=== PATIENT | male | born 1965 | race Caucasian/White ===

== ENCOUNTER → 2020-12-19 11:19 | Outpatient (BNVA) | payer BC, SELFPAY | PROVIDERS: Referring Provider Nurse Practitioner Family; Visit Provider Orthopaedic Surgery | DX: M54.5 Low back pain (principal); M51.36 Other intervertebral disc degeneration, lumbar region; M43.16 Spondylolisthesis, lumbar region | CPT/HCPCS: 72110 ==

== ENCOUNTER → 2021-05-22 10:06 | Outpatient (BNVA) | payer OTHER, SELFPAY | PROVIDERS: Visit Provider Orthopaedic Surgery | DX: Z01.818 Encounter for other preprocedural examination (principal) | CPT/HCPCS: 87635 ==

== ENCOUNTER 2021-05-28 15:26 | Observation (INO) | payer OTHER, SELFPAY ==
[2021-05-25 12:44] VITALS: BMI 28.0
[2021-05-28] VITALS (18 sets, daily range): BP systolic 107–151; BP diastolic 62–90; PULSE 72–91; RESP 16–18; TEMP 36.2–36.8; O2SAT 95–100
--- NOTE | 2021-05-28 | SCC_ITS ---
Procedure done: 1.? L4/5 Interbody fusion with posterolateral fusion 2.? Instrumentation L4/5 3. Cage at L4/5 4. Laminectomy L4 5. use of autograft from same incision 6. allograft 7. Bone marrow aspirate from right iliac crest 8.? Use of computer navigation/ stereotactic for spine 4 seconds of fluoroscopic guidance, for a cumulative dose of 28.1 mGy, was provided to Dr. Hernandez by the radiology department. C-arm images of the lumbar spine were saved for the patient's permanent record. CLARISA
--- NOTE | 2021-05-28 | XR_ITS ---
WS: [id number] INTRAOPERATIVE TECHNIQUE: 4 Spot fluoroscopic images for intraoperative purposes. FLUOROSCOPY TIME: 13 seconds CLINICAL INFORMATION: lumbar sponylothesis l4/l5 COMPARISON: None. FINDINGS: Pedicle screw fixation L4-L5 with interbody fusion graft. Hardware appears in good position. XR/XR lumbar spine 1V [id number] IMPRESSION: Images obtained for intraoperative purposes.
[2021-05-28] MEDS: sodium chloride 0.9% 1,000 ML 30 ML IV (11:35)
--- NOTE | 2021-05-28 11:45 | P.HP_ITS ---
Providers/Chief Complaint Primary Care Provider: KOURTNEY Manning Chief Complaint: lumbar spondylolthesis l4/5 History of Present Illness ROMULO CANALES is a 56 year old male He continues to have pain to his low back that travels into his posterior bilat leg pain with the right being worse. He has increased pain with straightening his legs, as well as with standing and walking. He is unable to walk more then 200ft without pain. His pain is relieved by bending foreword when ambulating. He has tried physical therapy and injection therapy with minimal relief. Oral prednisone? and tramadol which did provide short term relief. His pain is alleviated by laying on his back. He does an at home stretching program with minimal relief. He feels back pain is progressively worse. Review of Systems Narrative: General ROS: negative for weight changes, fever ENT ROS: negative for nasal congestion, drainage or bleeding, sore throat, dysp hagia or ear pain Eyes: PERRL Hematological and Lymphatic ROS: negative for swollen glands or abnormal bleeding Endocrine ROS: negative for polyuria/polydpsia or new changes in weight Respiratory ROS: negative for cough, shortness of breath, or wheezing Cardiovascular ROS: negative for chest pain or dyspnea on exertion Gastrointestinal ROS: negative for reflux, abdominal pain, change in bowel habi ts, or black or bloody stools Musculoskeletal ROS: negative for back pain, neck pain, or joint pain or swelling except for current problem Neurological ROS: negative for TIA or stoke symptoms Skin: no rashes Medications/Allergies Home Medications Medication Instructions Recorded Confirmed Last Taken Type ibuprofen 200 mg tablet 400 mg PO Q6H PRN 05/25/21 05/28/21 05/28/21 10:00 History Allergies Allergy/AdvReac Type Severity Reaction Status Date / Time No Known Allergies Allergy Verified 05/28/21 11:31 Vitals/I&O/Wt Last Vital Signs Temp 97.9 F 05/28/21 11:35 Pulse 78 05/28/21 11:35 Resp 18 05/28/21 11:35 BP 146/90 05/28/21 11:35 Pulse Ox 97 05/28/21 11:35 Physical Exam Narrative: CONSTITUTIONAL: The patient is a normal appearing [] in no apparent distress. GENERAL: Patient in no acute distress. CARDIAC: Regular rate and rhythm. CHEST: Normal inspiratory effort, normal respiratory rate. ABDOMEN: Soft and nontender. SKIN: Clear, warm and intact. NEURO?PSYCH: The patient is alert and oriented to person, place and time. Sensorv /SILT Motor StrengthShoulder abduction C5 5/5Wrist extension C6 5 /5Elbow extension C7 5/5Hand Car Rental Agent C8 5/5Finger abduction T15/5 Radial/ Ulnar/ Median n intact LowerSensory (SILT)Motor StrengthHin flexion L2/3Ant/inner thigh 5/5Hip adduction L2/3 5/5Knee extension L4 Lat thigh, 5/5Toe dorsiflexion L5 5/5Ankle dorsiflexion L5/ I23Qgsuren flexion S1 5/5 DTRBleeps 2+Triceps 2+Brachioradialis 2+Patellar 2+Achilles 2+ MUSCULOSKELETAL: [] UPPEREXTREMITIES: The patient had full active ROM in fingers, wrist, elbow, and shoulder. The patient demonstrated ability to fully flex/extend/abduct/adduct fingers, make ok sign, cross 2nd/3rd digits, extend 1st digit fully.. Radial pulse 2+, CR<2 seconds. LOWER EXTREMITIES: Pt has full, active ROM of toes, ankle, knee, and hip. Dorsalis pedis/posterior tibialis pulses 2+, CR<2 seconds. SPINE: Skin warm, dry, intact. A&P Assessment and plan (1) Spondylolisthesis at L4-L5 level: L4/5 PLIF Status: Acute Attestations Medical Necessity Statement*: failed conservative tx Coding Level of Care Code Acute Director Employee Safety And Health for [facility] Diagnoses Spondylolisthesis at L4-L5 level M43.16
--- NOTE | 2021-05-28 11:50 | ANES.PREANE2 ---
Pre-Anesthetic Assessment Height/Weight: Height 1.75 m Weight 86.183 kg Temp Pulse Resp BP Pulse Ox 97.9 F 78 18 146/90 97 05/28/21 11:35 05/28/21 11:35 05/28/21 11:35 05/28/21 11:35 05/28/21 11:35 Preop Diagnosis: Spondylolisthesis L4-5 Operation Date: 05/28/21 12:40 Proposed Procedures p PLIF L4/5 64909/36524/85602/98798/M43.16(Not Applicable) - Kael Hernandez, Familial anesthetic complications: None Was Beta Lynsey taken within 24 hours: N/A Was Clonidine taken within 24 hours: N/A Last intake: Intake Last Liquid Date 05/27/21 Last Liquid Time 21:00 Last Solid Date 05/27/21 Last Solid Time 21:00 Social No alcohol and No tobacco Exam alert, oriented x 3, clear to auscultation bilaterally and regular rate & rhythm Airway Submandibular: within normal limits Cervical ROM: within normal limits Mallampati: Class I Dentition: full History/ROS No significant complaints Pulmonary None reported CV/HEM None reported None reported Hepatic None reported GI None reported Metabolic None reported Musc/skel Osteoarthritis/DJD Degenerative disease Spondylolisthesis Neuropsych None reported Anesthetic Plan ASA status: 1 Anesthesia: Anesthesia Evaluation and General Other: We discussed risk and benefits of general anesthesia including PONV, sore throat (sometimes severe), blindness, corneal abrasion, positioning and peripheral nerve injuries, life threatening allergic reaction, post operative ICU admission requiring prolonged intubation, stroke, heart attack, , and rare incidences of recall. Patient consents to proceed with general anesthesia. Risk of > 500 ml blood loss (7ml/kg in children): No Medications/Allergies Home Medications Medication Instructions Recorded Confirmed Last Taken Type ibuprofen 200 mg tablet 400 mg PO Q6H PRN 05/25/21 05/28/21 05/28/21 10:00 History Allergies Allergy/AdvReac Type Severity Reaction Status Date / Time No Known Allergies Allergy Verified 05/28/21 11:31 Current Medications Generic Name Dose Route Start Last Admin Trade Name Freq PRN Reason Stop Dose Admin Sodium Chloride 1,000 mls @ 30 mls/hr 05/28/21 11:30 05/28/21 11:35 Sodium Chloride 0.9% IV 05/29/21 11:29 30 mls/hr .Q24H JESSICA Administration Data Anesthesia Cardiac Studies: No Data to Display
--- NOTE | 2021-05-28 14:51 | P.OP_ITS ---
Operative Report Date of procedure: May 28, 2021 Pre-op diagnosis: Preop Diagnosis Spondylolisthesis L4-5 with neurogenic claudication Post-op diagnosis: same Procedure done: 1.? L4/5 Interbody fusion with posterolateral fusion 2.? Instrumentation L4/5 3. Cage at L4/5 4. Laminectomy L4 5. use of autograft from same incision 6. allograft 7. Bone marrow aspirate from right iliac crest 8.? Use of computer navigation/ stereotactic for spine Surgeon: Kael Hernandez Pediatric Neuropsychologist: Gómez Moe Pediatric Neuropsychologist: The certified surgical tech/first assistant, Gómez Moe, PAC was needed for his expertise under the microscope. He was important and necessary throughout the procedure to complete in a safe and timely manner. He assisted with patient positioning prepping and draping tissue retraction suctioning of the operative field protection of the dural sac and tissue closure Estimated blood loss: 200 Procedure: 1.? L4/5 Interbody fusion with posterolateral fusion 2.? Instrumentation L4/5 3. Cage at L4/5 4. Laminectomy L4 5. use of autograft from same incision 6. allograft 7. Bone marrow aspirate from right iliac crest 8.? Use of computer navigation/ stereotactic for spine Patient is brought to the operative suite.? After undergoing anesthesia, the patient had neuro monitoring attached.? Patient was then placed in the prone position on the Inocencio table.? All areas of impingement were well-padded.? Patient was then prepped and draped in the normal sterile fashion.? Skin incision was then made over the L4/5 disk space.? Subperiosteal dissection was made out to the transverse processes of L4 and L5.? Once the exposure was complete attention was then brought to the bone marrow aspirate. Prior to placing the pedicle screws the Iddiction bone marrow aspirate kit was used to aspirate bone marrow aspirate from the right iliac crest.? This was done by using the sharp probe to open up the bone.? Aspiration was performed and then the blunt probe was then used to dissect down to through the bone tunnel.? An aspirating well drawn back a millimeter approximately 20 cc of bone marrow aspirate was used.? Andmixed with the allograft and autograft bone that will be used. Next the fiducials were placed for the computer navigation.? 2 pins were placed in the right iliac crest.? The fiducial was attached.? The C arm was brought in and spun around the patient.? The information was linked to the computer in order to facilitate using computer navigation for the case and placing the pedicle screws. The technique for placing the pedicle screws was to use a drill followed by the gearshift probe linked to computer navigation.? Followed by the ball probe to feel the superior inferior medial lateral munoz of the pedicles using the computer navigation? Then placement of the screws.? Was done at each pedicle.? Screws were placed at L4 bilaterally and L5 bilaterally? Next attention was brought to performing the laminectomy ofL5.? This was done using the high-speed bur Kerrisons and curettes.? Once the lamina was removed and then attention was brought to performing a partial facetectomy on the contralateral side.? This was done again using the high-speed bur curettes and Kerrisons.? The ligamentum flavum was taken down bilaterally from L4 to L5.? Attention was then brought to the facet on the ipsilateral side.? The facet was taken down.? The L5 nerve was decompressed as it passed around the L5 pedicle.? The laminectomy was done for purposes of decompressing the nerve as well as placement of the cage.? The L4 nerve was identified as it traversed through the L4/5 foramen.? The thecal sac was identified and retracted.? The L4/5 disc base was identified.? Using a knife the disc base was opened.? And then sequential abdifatah were placed.? The first shaver was a 6 and the last shaver was a 10.? Using a pituitary and down going curette the endplates were scraped and disc material was removed from the space.? Once adequate decompression of the disc base was felt to be had.? Osteoamp sponge was packed into the anterior aspect of the disc base.? Then a size 10 cage from [employer] was placed after packing osteoamp into the cage.? While placing the cage the thecal sac and L5 nerve was protected.? C arm was used to ensure that the cages placed in the appropriate position. Attention was then brought to attaching the rods to the screws placed in the L4 and L5 bilaterally.? Caps were torqued into position. Locking the construct in place. Wound was copiously irrigated and then attention was brought to decorticating the facets and transverse processes laterally.? Bone that was taken down from the lamina was used along with osteoamp fibers and sponges were packed into the lateral gutters along the facet joints.? This was done bilaterally. Wound was then closed in a layered fashion starting with the thoracolumbar fascia.? 0-vicryl was used the sub cutaneous tissue was closed with 2-0 vicryl and skin with 4-0 monocryl.? Glue was then used to seal the skin and a steril dressing was applied.? Patient was then placed in the supine position. The endotracheal tube was removed and patient was transferred to the PACU in stable condition.
[2021-05-28] MEDS: HYDROmorphone 1 mg/mL INJ 1 mL 0.5 MG IVP (15:45)
--- NOTE | 2021-05-28 16:07 | ANE.PACU2 ---
Inpatient post-anesthesia follow up: Airway intact: Yes Vital signs: Temperature 97.1 F Pulse Rate 80 Respiratory Rate 18 Blood Pressure 147/82 Pulse Oximetry 97 Oxygen Delivery Me thod Room Air Oxygen Flow Rate 6 Fraction of Inspir ed Oxygen Hydration adequate: Yes Nausea and vomiting: No Pain level: 5 Mental status: Baseline
[2021-05-28] MEDS: lactated ringers 1,000 ML 90 ML IV (17:12)
[2021-05-28] MEDS: docusate sodium 100 mg Capsule PO (17:22)
[2021-05-28] MEDS: HYDROcodone-acetaminophen 5-325 mg Tablet PO ×2 (17:22→21:18)
[2021-05-28] MEDS: ketorolac 30 mg/mL INJ IVP (20:12)
[2021-05-29] MEDS: HYDROcodone-acetaminophen 5-325 mg Tablet PO ×3 (01:05→10:44)
[2021-05-29] MEDS: ketorolac 30 mg/mL INJ IVP (02:47)
[2021-05-29] MEDS: lactated ringers 1,000 ML 90 ML IV (04:15)
[2021-05-29 04:18] VITALS: BP 119/73; PULSE 76; RESP 17; TEMP 36.7; O2SAT 92
[2021-05-29] MEDS: enoxaparin 40 mg/0.4 mL Syringe SUBCUT (05:23)
--- NOTE | 2021-05-29 07:54 | P.PN_ITS ---
Subjective Subjective: POD 1 Reports low back is sore legs feel different. Denies headaches, shortness of breath or chest pain. Vitals/I&O/Wt Last Vital Signs Temp 98.1 F 05/29/21 04:18 Pulse 76 05/29/21 04:18 Resp 17 05/29/21 04:18 BP 119/73 05/29/21 04:18 Pulse Ox 92 05/29/21 04:18 05/28/21 05/29/21 05/29/21 22:59 06:59 14:59 Intake Total 1500 / 1500 1354.5 / 2854.5 Output Total 400 / 400 550 / 950 Balance 1100 / 1100 804.5 / 1904.5 Physical Exam Narrative: Patient presents alert and oriented x3 with a good general appearance normal normal affect. Normal coordination normal stability. Mild tenderness around the incisional site with the incision appear to be clean and dry. No signs of erythema or drainage. No signs of infection. Patient denies any fevers or chills. 5/5 motor strength both lower extremities with negative straight leg raise bilaterally. Calves are supple no medial thigh tenderness. Pulses are 2+ at the dorsalis pedis and posterior tibial region. Good capillary refill throughout normal sensation light touch both lower extremities. Urinary Catheter Management: Shin: Cath Placed During This Visit: yes Reason for Continuing Indwelling Catheter: Required Immobilization for Trauma or Surgery or Anesthesia Urinary Catheter Date of Insertion: 05/28/21 Urinary Catheter Time of Insertion: 12:45 A&P Assessment and plan (1) Status post lumbar spinal fusion: We will discontinue the Shin catheter and Hemovac drain. Physical therapy to eval and treat. Plan for discharge home today. No bending lifting and twisting activities. Continue walking program. We will see him back in the office in 1 week's time for wound check. Status: Acute Attestations Medical Necessity Statement*: home today Coding Level of Care Code Acute Burn Table Operator for [facility] Diagnoses Status post lumbar spinal fusion Z98.1
[2021-05-29 08:00] VITALS: BP 134/71; PULSE 75; RESP 18; TEMP 36.5; O2SAT 97
[2021-05-29] MEDS: docusate sodium 100 mg Capsule PO (08:22)
--- NOTE | 2021-05-29 10:56 | PC.NURSE ---
Removed hemovac drain to right lower back. 4x4 and tegaderm applied.
[2021-05-29 12:06] VITALS: BP 134/71; PULSE 75; RESP 18; TEMP 36.5; O2SAT 97
--- NOTE | 2021-05-31 14:14 | P.DS_ITS ---
Discharge Providers Date of Admission: 05/28/21 15:26 Date of Discharge: May 29, 2021 Attending Provider at Admission: Kael Hernandez DO Attending Provider at Discharge: Kael Hernandez DO Primary Care Provider: KOURTNEY Manning Diagnoses at Discharge Discharge Diagnosis (1) Status post lumbar spinal fusion: Status: Acute Reason for Visit Reason for Visit: lumbar spondylolthesis l4/5 Hospital Course Hospital Course Uneventful Physical Exam Urinary Catheter Management: Shin: Cath Placed During This Visit: yes Reason for Continuing Indwelling Catheter: Required Immobilization for Trauma or Surgery or Anesthesia Urinary Catheter Date of Insertion: 05/28/21 Urinary Catheter Time of Insertion: 12:45 Discharge Data Studies Completed and Pending Completed Studies During Hospitalization Category Date Time Status XR lumbar spine 1V 19065 Routine Exams 05/28/21 Completed Radiology Impressions Lumbar Spine X-Ray 05/28/21 00:00 IMPRESSION: Images obtained for intraoperative purposes. Vitals Last Vital Signs Temp 97.7 F 05/29/21 12:06 Pulse 75 05/29/21 12:06 Resp 18 05/29/21 12:06 BP 134/71 05/29/21 12:06 Pulse Ox 97 05/29/21 12:06 Discharge Plan Discharge Patient Disposition: Home Condition: Stable Prescriptions: New hydrocodone-acetaminophen 5-325 mg Tablet 1 - 2 tab PO Q4H PRN (Reason: Moderate To Severe Pain) Qty: 0 0RF hydrocodone-acetaminophen 5-325 mg tablet 1 tab PO Q4H Qty: 40 0RF Held ibuprofen 200 mg Tablet 400 mg PO Q6H PRN (Reason: Pain) 0RF Hold Instructions: Resume on 06/18/21. Discharge Orders: Discharge Order (Routine); Ordered 05/29/21 Ordered By: Gómez Moe Referrals: Kael Hernandez DO [Physician] - 06/12/21 11:15 am Discharge Diet: Advance as tolerated Discharge Activity: Limit activity as instructed Patient Instructions: Hydrocodone/Acetaminophen (By mouth) (Vicodin, [place], Lortab), Lumbar Spinal Fusion (GEN), Opioid Safety Activity Restrictions/Additional Instructions: Thank you for choosing [facility] for your care! The following is a list of instructions, from your provider, to follow upon your discharge to ensure you have the optimal recovery from your recent injury or surgery. Follow-up care is a [place] part of your treatment and safety. Be sure to make and go to all appointments and call your doctor if you are having problems. If you do not already have a follow-up appointment made, call Dr. Hernandez's] office in the next 1-3 days to make follow up appointment for [1-2] weeks at [phone]. It is also a good idea to know your test results and keep a list of the medicines you take. Medications will be prescribed for you at your provider's discretion. These medications are to be used as instructed; if they are taken more often that prescribed they will not be refilled early and in most cases will not be refilled at all. > When a refill is needed, you should contact randolph moreira 2-3 business days before your prescription runs out. Medications will NOT be refilled by gas distribution supervisor providers after hours! > Many pain medications contain Tylenol (Acetaminophen). Do not consume more than 4,000 mg of Tylenol per day in total with any combination of medications. > Pain medications can cause constipation. Please use an over the counter stool softener as directed, while taking pain medications. Consult your local pharmacist with questions or recommendations on stool softeners. If constipation persists, contact our office or your primary care provider. > While under our care, you are not to receive pain medications or other controlled substances from any other provider unless our office is notified and approves. Any attempts to do so will result in refusal to prescribe any further pain medications and possible dismissal from our practice. ? Walking is essential for the healing process after surgery. We would like you to slowly advance your walking. This should be done on relatively flat clear ground (inside or out) or can be done on a treadmill. Remember this goal does not have to happen all at once, slowly increase your distance and duration. This can be broken into more more than one walk per day as tolerated. Patients who walk as directed after surgery rarely require Physica l Therapy. In the unlikely event this issue arises your provider will direct hospital staff to make the appropriate arrangements. ? No lifting over 5 pounds {a gallon of milk) or bending/twisting until further notice. Each of these activities places an unnecessary amount of stress onto the body and can impede the delicate healing process. > Instead of bending at the waist, keep your back straight and bend at the knees. > Instead of twisting your torso, keep your back straight and turn your entire body with your feet. ? You may sleep in any position which makes you comfortable. Many patients find comfort sleeping in a reclining chair. It is not abnormal to have difficulty sleeping for the first several weeks following your surgery. We recommend trying Benadry! or Tylenol PM as directed to help with your sleeping difficulties. Both medications are over the counter and available without prescription. ? NO SMOKING!!! Smoking dramatically increases the probability of developing postoperative wound infections. ? Common complaints after lumbar and/or thoracic spine surgery include, but are not limited to: numbness and/or tingling in the legs, pain around the incision and surrounding tissues, muscle spasms, or stiffness of the middle to low back. Contact our office if these symptoms persist or if an acute change occurs. ? No driving for the first 3-5days, and not while taking narcotics until seen at your follow-up appointment and cleared. There are no restrictions for riding on short trips, however if you take a longer trip, arrangements should be made to make regular stops to get out of the vehicle and stretch . ? Swelling is an unfortunate event that will take place with any surgery and is the primary source of your postoperative discomfort. While walking and regular approved activities helps control inflammation, there are additional steps you can take to minimize swelling. > Place ice over the surgical site and surrounding tissue for twenty minutes, followed by applying a low/medium heat (heating pad) for an additional twenty minutes every 1-2 hours as needed for painrelief. > You may use of over the counter anti-inflammatory medications (Ibuprofen, Motrin, Aleve, Advil, etc) as directed on the package label. These types of medicines will significantly reduce the amount of discomfort you exp erience after surgery from swelling. It should be noted that if you have and allergy to any of these medications, or a history of ulcers or kidney disease you should consult you primary care provider prior to starting these medications. Discharge Attestations Time Spent in Discharge Care*: less than 30 min Quality Metrics Clinical Quality Measures [ No reported AMI, CVA or VTE this stay] Coding Level of Care Code Acute Chg [facility] note Diagnoses Status post lumbar spinal fusion Z98.1
== END 2021-05-29 12:07 | disposition home or self-care (01) ==
LOC: MEDSURG 15:27
PROVIDERS: Admitting Provider Orthopaedic Surgery; PCP Nurse Practitioner; Visit Provider Orthopaedic Surgery
PROC: (CPT 22612; principal; 2021-05-28 12:30)
DX: M48.062 Spinal stenosis, lumbar region with neurogenic claudication (principal)
CPT/HCPCS: 20930; 20936; 20939; 22633; 22840; 22853; 61783; 63052; 36415; 51702; 72020; 76000; 96372; 97116; 97161; C1713; G0378; J0690; J1100; J1170; J1650; J1885; J2250; J2405; J2704; J3010; J3490; J7030

== ENCOUNTER → 2021-07-10 09:50 | Outpatient (BNVA) | payer OTHER, SELFPAY | PROVIDERS: PCP Nurse Practitioner; Visit Provider Orthopaedic Surgery | DX: Z98.1 Arthrodesis status (principal); Z48.89 Encounter for other specified surgical aftercare | CPT/HCPCS: 72100 ==

== ENCOUNTER → 2021-08-21 09:29 | Outpatient (BNVA) | payer OTHER, SELFPAY | PROVIDERS: PCP Nurse Practitioner; Visit Provider Orthopaedic Surgery | DX: Z98.1 Arthrodesis status (principal); Z47.89 Encounter for other orthopedic aftercare; Z98.890 Other specified postprocedural states | CPT/HCPCS: 72100; 99213 ==

== ENCOUNTER → 2021-11-20 16:03 | Outpatient (BNVA) | payer OTHER, SELFPAY | PROVIDERS: PCP Nurse Practitioner; Visit Provider Orthopaedic Surgery | DX: Z98.1 Arthrodesis status (principal) | CPT/HCPCS: 72100 ==